=== PATIENT | female | born 1975 | race Caucasian/White ===

== ENCOUNTER 2022-02-20 20:34 | Emergency (ER) | payer OTHER ==
[~2022-02-20] VITALS: Ht 160 cm; Wt 52.3 kg
[2022-02-20] MEDS ORDERED: methocarbamoL 750 MG TAB PO ONE (23:15)
[2022-02-20] MEDS ORDERED: KETOROLAC 60MG 2ML VIAL IM ONE (23:15)
[2022-02-20] MEDS ORDERED: LIDOCAINE 5% (LIDODERM) PATCH TD ONE (23:15)
[2022-02-21] MEDS ORDERED: GABAPENTIN 300 MG CAP PO ONE (01:40)
[2022-02-21] MEDS ORDERED: METH-1165 PO (01:47)
[2022-02-21] MEDS ORDERED: NAPR-837 PO (01:47)
[2022-02-21] MEDS ORDERED: LIDO5DIS41 TD (01:47)
[2022-02-21] MEDS ORDERED: GABA-282 PO (01:47)
[2022-02-21 02:04] VITALS: BP 106/57
[2022-02-21] MEDS ORDERED: **NOTE PATIENT COMMENT** MISC XX SCH (21:00)
== END 2022-02-21 02:06 | disposition home or self-care (01) ==
LOC: M ED 20:34
DX: M54.42 Lumbago with sciatica, left side (principal); Z79.899 Other long term (current) drug therapy
CPT/HCPCS: 96372; 99283; J1885